=== PATIENT | female | born 2000 | race Two or more races ===

== ENCOUNTER 2021-05-05 17:06 | Emergency (ER) | payer OTHER, BC ==
[~2021-05-05] VITALS: Ht 157.5 cm; Wt 53.5 kg
== END 2021-05-05 21:43 | disposition home or self-care (01) ==
LOC: ER 17:06
DX: J06.9 Acute upper respiratory infection, unspecified (principal); J98.8 Other specified respiratory disorders; Z20.822 Contact with and (suspected) exposure to COVID-19